=== PATIENT | female | born 1955 | race Caucasian/White ===

== ENCOUNTER 2022-04-18 11:55 | Outpatient (CLI) | payer BC, MEDICARE, SELFPAY ==
[2022-04-18 18:29] LABS: Albumin* 4.8 g/dL (3.3-5.0)
[2022-04-18 18:32] LABS: Alanine Aminotransferase* 18 U/L (4-35); Alkaline Phosphatase* 102 U/L (40-150); Aspartate Amino Transferase* 29 U/L (12-35); Bilirubin Direct* 0.2 mg/dL (0.0-0.5); Bilirubin Total* 0.5 mg/dL (0.1-1.5); Total Protein* 7.2 g/dL (6.0-8.3)
[2022-04-18 19:03] LABS: C Reactive Protein* < 0.5 mg/dL (0.5-1.0)
[2022-04-19 08:22] LABS: Lipase* 156 U/L (23-300)
== END 2022-04-18 11:56 | disposition home or self-care (01) ==
PROVIDERS: PCP Family Medicine; Visit Provider Family Medicine
DX: R10.9 Unspecified abdominal pain (principal)
CPT/HCPCS: 80076; 83690; 86140

== ENCOUNTER 2022-04-25 09:54 | Outpatient (CLI) | payer BC, MEDICARE, SELFPAY ==
[2022-04-25 10:56] LABS: Creatinine* 1.1 mg/dL (0.5-1.5); Estimated Glomerular Filt Rate 55 ml/min
--- NOTE | 2022-04-25 11:00 | CRLHL7_ITS ---
For Patients: As a result of the Century Cures Act, medical imaging exams and procedure reports are released immediately into your electronic medical record. You may view this report before your referring provider. If you have questions, please contact your health care provider. Indication: abd pain in epigastric area x few weeks Technique: Postcontrast CT abdomen and pelvis. 83 cc Isovue 370 intravenous contrast. Oral water. Please note that all CT scans at this facility use dose modulation, iterative reconstruction, and/or weight-based dosing when appropriate to reduce radiation dose to as low as reasonably achievable. Comparison: None Findings: Minimal atelectasis noted in both lung bases. No pleural effusion. A small hiatal hernia is present measuring 2.6 cm. No suspicious intrahepatic lesion. Postoperative changes of cholecystectomy with typical reservoir effect of the biliary tree. The pancreatic parenchyma is normal. Normal adrenal glands. Extrarenal pelvises and parapelvic cysts are present on the left. No hydronephrosis. Subcentimeter renal cortical cysts left kidney. Spleen normal. No retroperitoneal adenopathy. No mesenteric adenopathy. The appendix is normal. Normal bladder, uterus and ovaries. No bowel obstruction, free air, free fluid or abscess. Postop changes of upper abdominal wall hernia repair. No recurrent hernia or postoperative complication. Slight anterolisthesis of L5 on S1 is present. There is mild facet degeneration in the lower lumbar spine. No vertebral body compression fracture. Incidental degenerative cystic changes within the left humeral neck. The ureters are normal. No pelvic or inguinal adenopathy. Impression: Postoperative changes of cholecystectomy and upper abdominal anterior wall hernia repair. 2.6 cm hiatal hernia. Please note that all CT scans at this facility use dose modulation, iterative reconstruction, and/or weight-based dosing when appropriate to reduce radiation dose to as low as reasonably achievable. Dictated by Ludin Mclain MD @ 04/25/2022 1:04:11 PM (Electronically Signed)
== END 2022-04-25 09:55 | disposition home or self-care (01) ==
PROVIDERS: PCP Family Medicine; Visit Provider Family Medicine
DX: R10.9 Unspecified abdominal pain (principal); K44.9 Diaphragmatic hernia without obstruction or gangrene; R10.13 Epigastric pain
CPT/HCPCS: 36415; 74177; 82565; Q9967

== ENCOUNTER 2022-11-12 11:19 | Outpatient (CLI) | payer MEDICARE, SELFPAY | END 2022-11-12 11:20 | disposition home or self-care (01) | PROVIDERS: PCP Family Medicine; Visit Provider Family Medicine | DX: I10 Essential (primary) hypertension (principal); E78.5 Hyperlipidemia, unspecified; R63.4 Abnormal weight loss; Z13.6 Encounter for screening for cardiovascular disorders; R53.83 Other fatigue | CPT/HCPCS: 80053; 80061; 84443 ==

== ENCOUNTER 2022-11-29 13:40 | Outpatient (CLI) | payer MEDICARE, SELFPAY ==
[2022-11-29 16:37] VITALS: BP 138/88; PULSE 89
--- NOTE | 2022-11-29 23:46 | W.PM.STED ---
Stress Test Note Date Date Seen: 11/29/22 Date of test: 11/29/22 Providers Primary care provider: Francis Concepcion Stress test physician: Ana Mcclellan Stress Test Note Stress test ordered: Stress Echo Indication for test: Dyspnea and dizziness with exertion Stress test medicine: None Results discussion: Resting EKG: Sinus rhythm, 79 beats per minute. Flipped T-waves lead V1. Resting blood pressure: 155/81 Stress test: Patient exercised on the treadmill following standard Matteo protocol treadmill stress echo. She was able to exercise to 10 minutes with equivalent of 11.7 Mets of activity. This gives her a rate pressure product of 23,220. Patient did have some feelings of dizziness and shortness of breath initiation of exercise but she was able to go quite well into the stress test. She had a maximum heart rate of 140 beats per minute which was 106% of a calculated target heart rate of 131. Mild hypertensive response to exercise with 180/90. Impression: Negative EKG portion of this stress echo. Follow up suggested: Await echo images to couple this for a full formal diagnostic as noted. Patient discharged in stable condition from this test. She will await the formal report from her ordering physician.
== END 2022-11-29 13:41 | disposition home or self-care (01) ==
LOC: STRESS 13:41
PROVIDERS: PCP Family Medicine; Visit Provider Family Medicine
DX: R06.09 Other forms of dyspnea (principal)
CPT/HCPCS: 93016; 93325; 93351